=== PATIENT | male | born 1970 | race American Indian/Alaskan Native ===

== ENCOUNTER 2018-05-16 15:20 | Emergency (ER) | payer OTHER ==
[2018-05-16 17:16] LABS: Basophils # (Auto) 0.1 K/mm3 (0.0-0.1); Basophils % (Auto) 0.7 % (0.0-1.8); Eosinophils % (Auto) 0.4 % (0.0-4.3); Hematocrit 45.6 % (35.5-45.6); Hemoglobin 15.7 gm/dl (11.8-15.2); Lymphocytes # (Auto) 1.4 K/mm3 (1.2-5.4); Lymphocytes % (Auto) 16.5 % (13.4-35.0); Mean Corpuscular HGB Conc 35 % (32-34); Mean Corpuscular Hemoglobin 33 pg (28-32); Mean Corpuscular Volume 96 fl (84-94); Monocytes # (Auto) 0.5 K/mm3 (0.0-0.8); Monocytes % (Auto) 6.1 % (0.0-7.3); Platelet Count 204 K/mm3 (140-440); Red Blood Count 4.78 M/mm3 (3.65-5.03); Red Cell Distribution Width 13.7 % (13.2-15.2)
[2018-05-16 17:16] LABS: Bilirubin,Urine NEG (Negative); Blood,Urine NEG (Negative); Color,Urine Yellow (Yellow); Mucus,Urine FEW /HPF; Protein,Urine <15 mg/dL mg/dL (Negative); Urobilinogen,Urine < 2.0 mg/dL (<2.0); WBC,Urine < 1.0 /HPF (0.0-6.0)
[2018-05-16 17:25] LABS: Amphetamine Screen,Urine PRESUMPTIVE NEGATIVE; Benzodiazepines Screen,Urine PRESUMPTIVE NEGATIVE; Cocaine Screen,Urine PRESUMPTIVE NEGATIVE; Methadone Screen,Urine PRESUMPTIVE NEGATIVE; Opiate Screen,Urine PRESUMPTIVE NEGATIVE
[2018-05-16 17:36] LABS: Cannabinoid Screen,Urine PRESUMPTIVE POSITIVE
[2018-05-16 17:52] LABS: BUN/Creatinine Ratio 9; Blood Urea Nitrogen 6 mg/dL (9-20); Calcium 9.2 mg/dL (8.4-10.2); Hemolysis Index 19
[2018-05-16 18:11] LABS: Alanine Aminotransferase 11 units/L (7-56); Lipase 26 units/L (13-60)
[2018-05-16 18:14] LABS: Bilirubin,Direct < 0.2 mg/dL (0-0.2)
--- NOTE | 2018-05-16 19:58 | Emergency Department Report ---
ED Psych HPI - General Chief Complaint: Psych Stated Complaint: SUICIDE ATTEMPT Time Seen by Provider: 05/16/18 17:22 Source: patient, police Mode of arrival: Ambulatory - History of Present Illness Initial Comments: Pt was evicted from his house today. Started having thoughts of SI with a plan to cut his wrist. He called and told his realtor who told the police. He was found with a knife in his hand. No past history of mental health problems. Denies HI, AVH. Does not have access to guns at home. - Related Data Previous Rx's Medication Instructions Recorded Last Taken Type Cyclobenzaprine HCl [Flexeril] 10 mg PO TID #30 tablet 12/07/13 Unknown Rx HYDROcodone/ACETAMINOPHEN [[place] 1 each PO Q6HR PRN #20 tablet 12/07/13 Unknown Rx 5/325 Tablet] Ibuprofen [Motrin] 600 mg PO Q8H PRN #60 tablet 12/07/13 Unknown Rx Allergies Allergy/AdvReac Type Severity Reaction Status Date / Time No Known Allergies Allergy Verified 05/16/18 16:46 ED Review of Systems ROS: Stated complaint: SUICIDE ATTEMPT Other details as noted in HPI Comment: All other systems reviewed and negative Psychiatric: depression, suicidal thoughts ED Past Medical Hx - Past Medical History Previous Medical History?: No Hx Hypertension: Yes (no meds) - Surgical History Past Surgical History?: No - Social History Smoking Status: Current Every Day Smoker Substance Use Type: Alcohol - Medications Home Medications: Home Medications Medication Instructions Recorded Confirmed Last Taken Type Cyclobenzaprine HCl [Flexeril] 10 mg PO TID #30 tablet 12/07/13 Unknown Rx HYDROcodone/ACETAMINOPHEN [[place] 1 each PO Q6HR PRN #20 tablet 12/07/13 Unknown Rx 5/325 Tablet] Ibuprofen [Motrin] 600 mg PO Q8H PRN #60 tablet 12/07/13 Unknown Rx ED Physical Exam - General Limitations: No Limitations General appearance: alert, in no apparent distress - Head Head exam: Present: atraumatic, normocephalic - Eye Eye exam: Present: normal appearance - ENT ENT exam: Present: mucous membranes moist - Neck Neck exam: Present: normal inspection - Respiratory Respiratory exam: Present: normal lung sounds bilaterally. Absent: respiratory distress - Cardiovascular Cardiovascular Exam: Present: regular rate, normal rhythm. Absent: systolic murmur, diastolic murmur, rubs, gallop - GI/Abdominal GI/Abdominal exam: Present: soft, normal bowel sounds. Absent: distended, tenderness, guarding, rebound - Rectal Rectal exam: Present: deferred - Extremities Exam Extremities exam: Present: normal inspection - Back Exam Back exam: Present: normal inspection - Neurological Exam Neurological exam: Present: alert, oriented X3 - Psychiatric Psychiatric exam: Present: normal affect, depressed, suicidal ideation - Skin Skin exam: Present: warm, dry, intact, normal color. Absent: rash ED Course Vital Signs 05/16/18 05/16/18 16:46 16:55 Temperature 98.9 F Pulse Rate 86 Respiratory 16 16 Rate Blood Pressure 157/91 O2 Sat by Pulse 99 Oximetry ED Medical Decision Making - Lab Data Result diagrams: 05/16/18 17:01 05/16/18 17:01 - Medical Decision Making 47 yo male with no sig pmhx that presents with suicidal ideation. Vital signs are stable. Patient is well-appearing. Lab work is unremarkable. Patient is medically clear. He has been 1013. Disposition will be per psychiatry's recommendations. - Differential Diagnosis mood disorder, dehydration, sepsis, intoxication Critical care attestation.: If time is entered above; I have spent that time in minutes in the direct care of this critically ill patient, excluding procedure time. ED Disposition Condition: Stable Referrals: PRIMARY CARE, [Primary Care Provider] - 3-5 Days
[2018-05-16 22:19] VITALS: BP 162/86
== END 2018-05-17 00:26 ==
LOC: ED 15:20 → EEVIPCON 15:20 → ED 05-17 00:26
DX: F32.9 Major depressive disorder, single episode, unspecified (principal); F17.200 Nicotine dependence, unspecified, uncomplicated; I10 Essential (primary) hypertension
CPT/HCPCS: 36415; 80048; 80074; 80307; 81001; 83690; 85025; 99285; G0480; 80320

== ENCOUNTER 2019-04-20 16:06 | Emergency (ER) | payer SELFPAY ==
--- NOTE | 2019-04-20 17:54 | XRay Report ---
Right foot 3 views INDICATION: Right foot pain. History of gout IMPRESSION: Some gouty change of the great toe MTP is noted. There is mild degenerative osteoarthrosi s and joint space loss of the right great toe. The remainder of the joint spaces of the foot appear g rossly unremarkable. No fracture. No soft tissue abnormality identified aside from the great toe. Signer Name: Brian Pagan MD Signed: 04/20/2019 5:50 PM Workstation Name: [id number]
--- NOTE | 2019-04-20 17:55 | XRay Report ---
Right knee 3 views INDICATION: Right knee pain. IMPRESSION: The right knee is intact. No focal soft tissue abnormality. Tiny knee effusion. Signer Name: Brian Pagan MD Signed: 04/20/2019 5:50 PM Workstation Name: [id number]
[2019-04-20] MEDS ORDERED: DELTASONE PO ONE (22:04)
[2019-04-20] MEDS ORDERED: IBUPROFEN PO ONE (22:04)
[2019-04-20] MEDS ORDERED: NORCO 5/325 PO ONE (22:04)
[2019-04-20 23:02] VITALS: BP 159/79
--- NOTE | 2019-04-20 23:12 | Emergency Department Report ---
ED Lower Extremity HPI - General Chief Complaint: Extremity Injury, Lower Stated Complaint: R LEG/FOOT PAIN Time Seen by Provider: 04/20/19 22:00 Source: patient Mode of arrival: Ambulatory Limitations: No Limitations - History of Present Illness Initial Comments: Patient is a 48-year-old female with history of gout presents for right knee and right foot pain for the past 3 months pain is 5/10 aching with intermittent swelling there is no numbness no tingling patient remains ambulatory to baseline per patient pt denies recent fall injury or trauma MD Complaint: other (chronic knee and foot pain ) Onset/Timin -: month(s) Injury: Knee: Right, Foot: Right Type of Injury: other (no acute injury, hx of gout ) Place: home Severity: moderate Severity scale (0 -10): 5 Improves With: rest Worsens With: weight bearing, movement, palpation Associated Symptoms: swelling, ambulatory. denies: snap/pop sensation, numbness, tingling - Related Data Previous Rx's Medication Instructions Recorded Last Taken Type Cyclobenzaprine HCl [Flexeril] 10 mg PO TID #30 tablet 12/07/13 Unknown Rx HYDROcodone/ACETAMINOPHEN [[place] 1 each PO Q6HR PRN #20 tablet 12/07/13 Unknown Rx 5/325 Tablet] Ibuprofen [Motrin] 600 mg PO Q8H PRN #60 tablet 12/07/13 Unknown Rx Indomethacin 50 mg PO Q8H PRN 10 Days #30 04/20/19 Unknown Rx capsule predniSONE [Deltasone] 40 mg PO QDAY 5 Days #10 tab 04/20/19 Unknown Rx Allergies Allergy/AdvReac Type Severity Reaction Status Date / Time No Known Allergies Allergy Verified 04/20/19 16:08 ED Review of Systems ROS: Stated complaint: R LEG/FOOT PAIN Other details as noted in HPI Constitutional: denies: chills, fever Eyes: denies: eye pain, eye discharge, vision change ENT: denies: ear pain, throat pain Respiratory: denies: cough, shortness of breath, wheezing Cardiovascular: denies: chest pain, palpitations Endocrine: no symptoms reported Gastrointestinal: denies: abdominal pain, nausea, diarrhea Genitourinary: denies: urgency, dysuria Musculoskeletal: arthralgia, myalgia. denies: back pain, joint swelling Skin: denies: rash, lesions Neurological: denies: headache, weakness, paresthesias Psychiatric: denies: anxiety, depression Hematological/Lymphatic: denies: easy bleeding, easy bruising ED Past Medical Hx - Past Medical History Hx Hypertension: Yes - Surgical History Past Surgical History?: No - Social History Smoking Status: Never Smoker Substance Use Type: None - Medications Home Medications: Home Medications Medication Instructions Recorded Confirmed Last Taken Type Cyclobenzaprine HCl [Flexeril] 10 mg PO TID #30 tablet 12/07/13 Unknown Rx HYDROcodone/ACETAMINOPHEN [[place] 1 each PO Q6HR PRN #20 tablet 12/07/13 Unknown Rx 5/325 Tablet] Ibuprofen [Motrin] 600 mg PO Q8H PRN #60 tablet 12/07/13 Unknown Rx Indomethacin 50 mg PO Q8H PRN 10 Days #30 04/20/19 Unknown Rx capsule predniSONE [Deltasone] 40 mg PO QDAY 5 Days #10 tab 04/20/19 Unknown Rx ED Physical Exam - General Limitations: No Limitations General appearance: alert, in no apparent distress - Head Head exam: Present: atraumatic, normocephalic - Eye Eye exam: Present: normal appearance, PERRL, EOMI Pupils: Present: normal accommodation - ENT ENT exam: Present: mucous membranes moist - Neck Neck exam: Present: normal inspection, full ROM. Absent: tenderness, lymphade nopathy, thyromegaly - Respiratory Respiratory exam: Present: normal lung sounds bilaterally. Absent: respiratory distress, wheezes, stridor, chest wall tenderness - Cardiovascular Cardiovascular Exam: Present: regular rate, normal rhythm, normal heart sounds. Absent: systolic murmur, diastolic murmur, rubs, gallop - GI/Abdominal GI/Abdominal exam: Present: soft, normal bowel sounds. Absent: distended, tenderness, bruit, hernia - Rectal Rectal exam: Present: deferred - Extremities Exam Extremities exam: Present: full ROM, tenderness (anterior knee and dorsal foot ), normal capillary refill. Absent: pedal edema, joint swelling, calf tenderness - Expanded Lower Extremity Exam Right Knee exam: Present: full ROM, tenderness, pain w/ pronation/supination, full knee extension. Absent: swelling, abrasion, laceration, ecchymosis, deformity, crepidus, dislocation, erythema, effusion, posterior draw sign, pain/laxity with valgus, pain/laxity with varus Foot/Toe exam: Present: full ROM, tenderness. Absent: swelling, abrasion, laceration, ecchymosis, deformity, crepidus, dislocation, erythema, amputation, puncture wound, foreign body, calcaneal tenderness, tenderness at base of 5th metatarsal, nail avulsion, subungual hematoma Neuro vascular tendon exam: Absent: pulse deficit, motor deficit, sensory deficit, tendon deficit Gait: Positive: observed and normal - Back Exam Back exam: Present: normal inspection, full ROM. Absent: tenderness, CVA tenderness (R), CVA tenderness (L), muscle spasm, paraspinal tenderness, rash noted - Neurological Exam Neurological exam: Present: alert, oriented X3, CN II-XII intact, normal gait, reflexes normal. Absent: motor sensory deficit - Psychiatric Psychiatric exam: Present: normal affect, normal mood - Skin Skin exam: Present: warm, dry, intact, normal color. Absent: rash ED Course Vital Signs 04/20/19 04/20/19 17:09 23:01 Temperature 98.9 F 97.1 F L Pulse Rate 92 H 72 Respiratory 16 16 Rate Blood Pressure 151/78 Blood Pressure 159/79 [Left] O2 Sat by Pulse 98 98 Oximetry ED Lower Extremity MDM - Radiology Data Radiology results: report reviewed, image reviewed Ordering Physician: ANIKA JOHNSON MD Date of Service: 04/20/19 Procedure(s): XR knee 3V RT Accession Number(s): [id number] cc: ANIKA JOHNSON MD Fluoro Time In Minutes: Right knee 3 views INDICATION: Right knee pain. IMPRESSION: The right knee is intact. No focal soft tissue abnormality. Tiny knee effusion. Signer Name: Brian Pagan MD Signed: 04/20/2019 5:50 PM Workstation Name: [id number] Transcribed By: Dictated By: Brian Pagan MD Electronically Authenticated By: Brian Pagan MD Signed Date/Time: 04/20/191749 DD/ 49 Ordering Physician: ANIKA JOHNSON MD Date of Service: 04/20/19 Procedure(s): XR foot 3+V RT Accession Number(s): [id number] cc: ANIKA JOHNSON MD Fluoro Time In Minutes: Right foot 3 views INDICATION: Right foot pain. History of gout IMPRESSION: Some gouty change of the great toe MTP is noted. There is mild degenerative osteoarthrosis and joint space loss of the right great toe. The remainder of the joint spaces of the foot appear grossly unremarkable. No fracture. No soft tissue abnormality identified aside from the great toe. Signer Name: Brian Pagan MD Signed: 04/20/2019 5:50 PM Workstation Name: [id number] Transcribed By: TIKI Dictated By: Brian Pagan MD Electronically Authenticated By: Brian Pagan MD Signed Date/Time: 04/20/191749 DD/ 48 TD/TT: - Medical Decision Making xrays no fracture no right knee small effusion, foot mild gout changes no fracture no soft tissue abnormality, pain is improved with medications given in ed plan: dc to home with rx for prednisone, endomethacin, follow up with pcp in 2-3 days pt verbalized agreement and understanding of same. Critical care attestation.: If time is entered above; I have spent that time in minutes in the direct care of this critically ill patient, excluding procedure time. ED Disposition Clinical Impression: Knee effusion, right Arthralgia Qualifiers: Joint pain location: foot Laterality: right Qualified Code(s): M25.571 - Pain in right ankle and joints of right foot Gout Qualifiers: Gout site: foot Gout etiology: unspecified cause Chronicity: chronic Laterality: right Qualified Code(s): M1A.0710 - Idiopathic chronic gout, right ankle and foot, without tophus (tophi) Disposition: DC-01 TO HOME OR SELFCARE Is pt being admited?: No Does the pt Need Aspirin: No Condition: Stable Instructions: Knee Effusion (ED), Acute Gouty Arthritis (ED), Low Purine Diet (ED) Prescriptions: predniSONE [Deltasone] 40 mg PO QDAY 5 Days #10 tab Indomethacin 50 mg PO Q8H PRN 10 Days #30 capsule PRN Reason: pain Referrals: DESTIN THORPE MD [Primary Care Provider] - 3-5 Days Forms: Work/School Release Form(ED) Time of Disposition: 23:22
== END 2019-04-20 23:34 | disposition home or self-care (01) ==
LOC: ED 16:06
DX: M1A.0710 Idiopathic chronic gout, right ankle and foot, without tophus (tophi) (principal); M25.461 Effusion, right knee; I10 Essential (primary) hypertension; Z79.1 Long term (current) use of non-steroidal anti-inflammatories (NSAID)
CPT/HCPCS: 73562; 73630; 99283; J7512